=== PATIENT | female | born 1990 | race Caucasian/White ===

== ENCOUNTER 2018-08-06 10:57 | Emergency (ER) | payer SELFPAY ==
[~2018-08-06] VITALS: Ht 162.6 cm; Wt 63.6 kg
[~2018-08-06 10:57] MED LIST: AMOXICILLIN500 MG PO; BACTRIM DS1 TAB PO; DENIES CURRENT MEDS; LAMISIL AT1 % EX; NO HOME MEDS; OB COMPLET2 PO; ZPAK OR
[2018-08-06 11:35] VITALS: BP 117/88
== END 2018-08-06 11:35 | disposition home or self-care (01) | DRG 605 ==
LOC: ED 10:57
PROC: 0HQGXZZ Repair Left Hand Skin, External Approach (ICD-10-PCS; principal; 2018-08-06)
DX: S61.012A Laceration without foreign body of left thumb without damage to nail, initial encounter (principal); W26.0XXA Contact with knife, initial encounter; Y92.009 Unspecified place in unspecified non-institutional (private) residence as the place of occurrence of the external cause

== ENCOUNTER 2018-11-14 16:26 | Emergency (ER) | payer BC ==
[~2018-11-14] VITALS: Ht 162.6 cm; Wt 63.6 kg
[2018-11-14] MEDS ORDERED: IBUPROFEN600 MG PO (18:21)
[2018-11-14] MEDS ORDERED: ORPHENADRINE100 MG PO (18:21)
[2018-11-14 19:28] VITALS: BP 121/79
== END 2018-11-14 19:28 | disposition home or self-care (01) | DRG 563 ==
LOC: ED 16:26
DX: S43.401A Unspecified sprain of right shoulder joint, initial encounter (principal); X58.XXXA Exposure to other specified factors, initial encounter